=== PATIENT | female | born 1960 | race Caucasian/White ===

== ENCOUNTER → 2019-02-12 11:15 | Outpatient (CLI) | payer OTHER, SELFPAY ==
--- NOTE | 2019-02-12 11:18 | DI.MRI.S_ITS ---
PROCEDURE: MR HIP LT WO CON INDICATIONS: left hip pain TECHNIQUE: Noncontrast coronal T1 spin echo and STIR through the bony pelvis. Coronal and axial T2 fast spin echo with fat saturation, sagittal T1 spin echo, and oblique axial T2 fast spin echo with fat saturation through the hip. COMPARISON: None. FINDINGS: Image quality: Excellent. Bones and joints: Bone marrow of the pelvic ring and proximal femurs show normal signal throughout. No intraosseous lesions or fractures. No avascular necrosis of the femoral heads. Lower lumbar spondylosis. There is degenerative hip joint spurring. Tendons and ligaments: The gluteus medius and minimus tendons appear intact, without associated muscle atrophy. The nearby proximal iliotibial band also appears intact. The iliopsoas tendon appears intact, without adjacent bursal fluid collections or evidence for impingement syndrome. The origin of the hamstring tendon is intact at the ischial tuberosity, as well as the associated sacrotuberous ligament. The straight and reflected heads of the rectus femoris muscle origin appear intact, as well as the conjoint tendon. The ligamentum teres appears intact where visualized. Labrum and cartilage: Ill-defined fraying of the anterosuperior labrum, versus chronic macerated degenerative tear. There is diffuse partial-thickness cartilage loss. The alpha angle of the femur is within normal limits at less than 55 degrees. Soft tissues: Visualized muscles demonstrate normal bulk and internal signal. Quadratus femoris muscle demonstrates no internal edema to suggest ischiofemoral impingement. The proximal sciatic neurovascular bundle appears normal adjacent to the hamstring tendons. No free pelvic fluid. Bladder wall thickness is normal. Genitourinary structures and bowel loops appear normal where visualized. IMPRESSION: Age appropriate degeneration/fraying of the anterosuperior labrum. Left hip joint degeneration, with associated osteophytic spurring. Lower lumbar spondylosis. Dictated by: Charli Lazaro M.D. on 02/12/2019 at 15:22 Approved by: Charli Lazaro M.D. on 02/12/2019 at 15:34
== END ==
PROVIDERS: PCP Family Medicine; Visit Provider Family Medicine
DX: M25.552 Pain in left hip (principal); M16.12 Unilateral primary osteoarthritis, left hip; M47.816 Spondylosis without myelopathy or radiculopathy, lumbar region
CPT/HCPCS: 73721

== ENCOUNTER → 2023-06-05 12:12 | Outpatient (CLI) | payer MEDICARE, SELFPAY ==
--- NOTE | 2023-06-05 | DI.RAD.S_ITS ---
Bone Density Report Name: MARY GRACE CANDELARIO Age: 63 Sex: Female Ethnicity: White Date of : 1960 Indication: postmenopausal; screening for osteoporosis; Referring Provider: STANLEY HOLGUIN Study: Bone densitometry was performed. Exam Date: June 05, 2023 Accession number: [id number] Bone Density: Region BMD T-score Z-score Classification AP Spine(L2, L3, L4) 0.970 -1.0 0.8 Normal Femoral Neck (Left) 0.737 -1.0 0.5 Normal Total Hip (Left) 0.784 -1.3 -0.1 Osteopenia Femoral Neck (Right) 0.737 -1.0 0.5 Normal Total Hip (Right) 0.737 -1.7 -0.4 Osteopenia Total Hip Mean 0.760 -1.5 -0.3 Osteopenia World Health Organization criteria for BMD impression classify patients as: Normal (T-score at or above -1.0), Osteopenia (T-score between -1.0 and -2.5), or Osteoporosis (T-score at or below -2.5). 10-year Fracture Risk(1): Major Osteoporotic Fracture 8.0% Hip Fracture 0.6% Reported Risk Factors: [place] (), Neck BMD=0.737, BMI=24.4 (1) FRAX(R) Version 3.08. Fracture probability calculated for an untreated patient. Fracture probability may be lower if the patient has received treatment. Impression: The patient has low bone mass, based on the Right Total Hip T-score. The patient has an estimated ten-year risk of hip fracture of 0.6% and an estimated ten-year risk of major fracture of 8%, based on the WHO FRAX algorithm. Discussion: BONE DENSITY IS LOW AT ONE OR MORE SKELETAL SITES. This patient's lowest T-score is low at one or more skeletal sites. It meets the World Health Organization's (WHO) criteria for low bone mass (T-score between -1.0 and -2.5). The patient's 10-year risk of fracture as calculated by FRAX is less than the threshold where pharmacological therapy is recommended by the National Osteoporosis Foundation (NOF). However, all treatment decisions require clinical judgment and consideration of individual patient factors, including patient preferences, comorbidities, previous drug use, risk factors not captured in the FRAX model (e.g., frailty, falls, vitamin D deficiency, increased bone turnover, interval significant decline in bone density) and possible under or overestimation of fracture risk by FRAX. The patient should follow a healthful lifestyle (good nutrition with adequate calcium and vitamin D, and appropriate weight-bearing exercise). Follow-Up: Consider repeating this study in 2 to 3 years to reassess this patient's status, or sooner if there is some new clinical indication. Reported by: [facility] LARA JORDAN M.D. on 06/05/2023 1:08:00 PM.
== END ==
PROVIDERS: PCP Registered Nurse Diabetes Educator; Referring Provider Internal Medicine; Visit Provider Internal Medicine
DX: M85.851 Other specified disorders of bone density and structure, right thigh (principal); Z78.0 Asymptomatic menopausal state
CPT/HCPCS: 77080

== ENCOUNTER → 2024-05-22 11:59 | Outpatient (ROUT) | payer MEDICARE, SELFPAY ==
[2024-05-22 12:45] LABS: Influenza A - CEPHEID Flu A NEGATIVE (NEGATIVE); Influenza B - CEPHEID Flu B NEGATIVE (NEGATIVE); Respiratory Syncytial Virus Negative (Negative)
[2024-05-22 12:46] LABS: COVID-19 CEPHEID 4-PLEX PCR Negative (Negative)
== END ==
PROVIDERS: PCP Internal Medicine; Visit Provider Family Medicine
DX: R05.1 Acute cough (principal)
CPT/HCPCS: 0241U

== ENCOUNTER 2024-06-09 07:36 | Day surgery (SDC) | payer MEDICARE, SELFPAY ==
[2024-06-09 08:13] VITALS: BP 107/71; PULSE 69; RESP 18; TEMP 37.2; O2SAT 97
--- NOTE | 2024-06-09 08:20 | P.HP_ITS ---
History of Present Illness History of Present Illness Date Patient Seen: 06/09/24 Time Patient Seen: 08:20 Chief complaint: Colonoscopy Narrative: Adeline is a 64 year old woman here for a colonoscopy. She last had one in 2019 with findings of tubular adenomas. She is a [employer] and does not accept blood products. [facility] Medical History Abnormal Pap smear of cervix Hyperlipidemia Hypothyroidism (~1995) Obesity Surgical History Anesthesia History of bilateral breast implants (1979) History of removal of implants of both breasts (1993) History of urinary tract surgery (1964) Status post delivery (1985) Status post delivery (1987) Status post delivery (1989) Status post delivery (1992) Status post tonsillectomy and adenoidectomy (1961) Family History Father Hypertension CLL (chronic lymphocytic leukemia) Mother Age: 95 Cancer Malignant neoplasm of female breast, unspecified laterality, unspecified site of breast Memory loss Grandfather No problems noted. Grandmother Brain tumor Grandfather Pneumonia Grandmother No problems noted. Sister No problems noted. Family/Other Controlled epilepsy Social History Smoking Status: Former smoker alcohol intake: current Meds Home Medications and Allergies Home Medications Medication Instructions Recorded Confirmed Type alprazolam 0.25 mg tablet 0.25 mg PO Q6HP #30 tabs 08/26/20 02/06/21 Rx Naltrexone low dose 03/26/22 History thyroid (pork) 180 mg tablet 180 mg PO DAILY 08/06/22 History thyroid (pork) 60 mg tablet 60 mg PO DAILY #90 tabs 08/06/22 Rx trazodone 50 mg tablet 25 - 100 mg PO ONCE PM PRN insomnia 06/09/24 06/09/24 History Allergies Allergy/AdvReac Type Severity Reaction Status Date / Time aspirin [ASPIRIN] Allergy Mild sensitivity Verified 02/06/21 16:41 bupropion [BUPROPION] Allergy Mild headache Verified 02/06/21 16:41 erythromycin base Allergy Mild GI upset Verified 02/06/21 16:41 [ERYTHROMYCIN BASE] Exam Vital Signs (past 8 hours): - 06/09/24 08:13 Temperature 98.9 F Pulse Rate 69 Respiratory Rate 18 Blood Pressure 107/71 Pulse Oximetry 97 Oxygen Delivery Method Room Air Oxygen Delivery Method Room Air Const General: healthy appearing Resp Effort & Inspection: normal respiratory effort Assessment & Plan Assessment and plan (1) History of colon polyps: Status: Acute Plan Colonoscopy No blood products under any circumstances. Time-Based Coding :: [TOTAL MINUTES] spent with patient and on the chart (including review of chart, obtaining history, exam, reviewing outside data, placing orders, documenting exam and treatment plan, and counseling patient) on [DATE].
--- NOTE | 2024-06-09 09:20 | PM.OP.COLON ---
Operative Date/Time/Diagnoses Date of procedure: 06/09/24 Time of procedure: 09:20 Pre-op diagnosis: History of polyps Post-op diagnosis: same Procedure & Clinicians Study performed: Colonoscopy Same procedure as scheduled: Yes Surgeon: Travis Pritchard Procedure Notes Procedure in detail: Surgeon: Travis Pritchard MD Anesthesia: Yainque Cox CRNA Procedure: The patient was brought to the endoscopy suite, placed in left lateral decubitus position. The patient was connected to monitoring devices. A time-out was performed. Sedation was administered. Once the patient was adequately sedated, a digital rectal exam was performed and was normal. The scope was then inserted and advanced to the cecum where the appendiceal orifice was identified and photographed. The scope was then slowly withdrawn over greater than 6 minutes. The mucosa was thoroughly inspected. No abnormalities were identified. The scope was retroflexed in the rectum. Internal hemorrhoids were noted. The scope was straightened and removed. The patient was awakened and brought to recovery. Scope withdrawal time: 7 minutes Sedation time: 12 minute EBL: 0 Findings: Internal hemorrhoids Post-procedure Recommendations: Colonoscopy in 10 years Disposition: PACU
[2024-06-09 09:21] VITALS: BP 95/56; PULSE 77; RESP 16; TEMP 36.6; O2SAT 97
[2024-06-09 09:25] VITALS: BP 98/62; PULSE 78; RESP 16; O2SAT 98
[2024-06-09 09:26] VITALS: BP 98/62; PULSE 73; RESP 16; O2SAT 98
[2024-06-09 09:31] VITALS: BP 102/53; PULSE 82; RESP 16; TEMP 36.7; O2SAT 97
[2024-06-09 09:34] VITALS: BP 105/66; PULSE 71; RESP 18; TEMP 36.7; O2SAT 98
== END 2024-06-09 09:50 | disposition home or self-care (01) ==
PROVIDERS: Surgery; PCP Internal Medicine; Referring Provider Surgery; Visit Provider Surgery
PROC: 0DJD8ZZ Inspection of Lower Intestinal Tract, Via Natural or Artificial Opening Endoscopic (ICD-10-PCS; CPT 45378; principal; 2024-06-09 08:45)
DX: Z12.11 Encounter for screening for malignant neoplasm of colon (principal); Z86.0100 Personal history of colon polyps, unspecified; K64.8 Other hemorrhoids
CPT/HCPCS: G0105; J2405; J2704

== ENCOUNTER → 2025-03-05 11:16 | Outpatient (CLI) | payer MEDICARE, BC, SELFPAY ==
--- NOTE | 2025-03-05 11:20 | DI.MG.S_ITS ---
MM screening mammo BI: 03/05/2025. BI-RADS: 0 CLINICAL: 64-year old female for bilateral screening mammogram. Tyrer-Cuzick lifetime risk of 9.9%. Current reported family history of breast cancer: mother. PRIOR EXAMS: 06/05/2016, 05/23/2016. MAMMOGRAPHY TECHNIQUE: 2D and 3D (tomosynthesis) digital mammographic views obtained, with additional images as needed for full coverage. Current study was also evaluated with a Computer Aided Detection (CAD) system. DENSITY B. There are scattered areas of fibroglandular density. MAMMOGRAPHY FINDINGS Right: Central, Posterior depth: Calcifications needing additional imaging evaluation. Left: No suspicious mass, asymmetry, microcalcification, or other abnormality seen. IMPRESSION: Right (Calcification): Central, Posterior depth * Incomplete - calcification needing additional imaging evaluation. Left * No evidence of malignancy. RECOMMENDATIONS Right: Central, Posterior depth * Further evaluation with diagnostic mammography. OVERALL ASSESSMENT CATEGORY BI-RADS-0: Incomplete - Need Additional Imaging Evaluation. ELECTRONICALLY SIGNED: Jackie Zeng M.D. on 03/05/2025 at 11:49:17 PM PT Interpreting Station ID: [id number]
== END ==
PROVIDERS: PCP Registered Nurse; Referring Provider Registered Nurse; Visit Provider Registered Nurse
DX: Z12.31 Encounter for screening mammogram for malignant neoplasm of breast (principal); Z80.3 Family history of malignant neoplasm of breast
CPT/HCPCS: 77063; 77067

== ENCOUNTER → 2025-03-26 09:16 | Outpatient (CLI) | payer MEDICARE, BC, SELFPAY ==
--- NOTE | 2025-03-26 09:17 | DI.MG.S_ITS ---
MM diagnostic mammo unilat RT: 03/26/2025. BI-RADS: 2 CLINICAL: 65-year old female for right diagnostic mammogram that is a recall from screening on 03/05/2025. Tyrer-Cuzick lifetime risk of 9.3%. Current reported family history of breast cancer: mother. PRIOR EXAMS 03/05/2025, 06/05/2016, 05/23/2016. MAMMOGRAPHY TECHNIQUE: 2D and 3D (tomosynthesis) digital mammographic views obtained, with additional images as needed for full coverage. Current study was also evaluated with a Computer Aided Detection (CAD) system. DENSITY Right: B. There are scattered areas of fibroglandular density. MAMMOGRAPHY FINDINGS Right: Central: Correlating with findings on screening mammogram there are diffuse large alvaro-like calcifications. There are also scattered dystrophic calcifications. IMPRESSION: Right * No evidence of malignancy with benign findings. RECOMMENDATIONS Bilateral * Annual screening mammography. COMMENTS: Findings and recommendations were conveyed to the patient during today's evaluation. OVERALL ASSESSMENT CATEGORY BI-RADS-2: Benign. The [employer] recommends annual screening mammography beginning at age 40 for women with average risk of breast cancer. ELECTRONICALLY SIGNED: Jackie Zeng M.D. on 03/26/2025 at 10:14:16 AM PT Interpreting Station ID: [id number]
== END ==
LOC: MAMMO 09:17
PROVIDERS: PCP Registered Nurse; Referring Provider Registered Nurse; Visit Provider Registered Nurse
DX: R92.8 Other abnormal and inconclusive findings on diagnostic imaging of breast (principal); R92.1 Mammographic calcification found on diagnostic imaging of breast; Z80.3 Family history of malignant neoplasm of breast
CPT/HCPCS: 77065; G0279